=== PATIENT | male | born 1960 | race Hispanic/Latino ===

== ENCOUNTER 2019-03-23 11:28 | Emergency (ER) | payer OTHER ==
--- NOTE | 2019-03-23 13:56 | ER ---
Nurse's Notes [facility] Name: Cody Montes Age: 58 yrs Sex: Male : 1960 Arrival Date: 03/23/2019 Time: 11:35 Bed 23 Private MD: Diagnosis: Presentation: 03/23 12:14 Presenting complaint: Patient states: right elbow swelling and redness x 3-4 days. sv Transition of care: patient was not received from another setting of care. Onset of symptoms was March 2019. Risk Assessment: Do you want to hurt yourself or someone else? Patient reports no desire to harm self or others. Care prior to arrival: None. 12:14 Method Of Arrival: Ambulatory sv 12:14 Acuity: HUBER 3 sv Triage Assessment: 12:14 General: Appears in no apparent distress. uncomfortable, Behavior is calm, cooperative, sv appropriate for age. Pain: Complains of pain in right elbow and palmar aspect of right forearm. Neuro: Level of Consciousness is awake, alert, obeys commands, Gait is steady. Respiratory: Respiratory effort is even, unlabored, Respiratory pattern is regular, symmetrical. Derm: redness and swelling noted on and around right elbow. Historical: - Allergies: 12:14 No Known Allergies; sv Vital Signs: 12:15 BP 135 / 69; Pulse 63; Resp 18; Temp 97.7; Pulse Ox 97% ; Weight 90.72 kg; Height 6 ft. sv 0 in. (182.88 cm); 12:15 Body Mass Index 27.13 (90.72 kg, 182.88 cm) sv ED Course: 11:35 Patient arrived in ED. am2 12:14 Triage completed. sv 12:15 Arm band placed on Patient placed in waiting room. sv 13:53 Cristin Byrnes RN is Primary Nurse. ca1 13:53 Abhay Jacques PA is PHCP. cp 13:53 Tal Ndiaye MD is Attending Physician. cp Administered Medications: No medications were administered Outcome: 13:55 Patient left the ED. Signatures: Selene Haywood RN RN sv Abhay Jacques PA PA cp Noni Victoria RN RN Ashia Haskins am2 Cristin Byrnes RN RN ca1 Corrections: (The following items were deleted from the chart) 12:15 12:15 Pulse 63bpm; Resp 18bpm; Pulse Ox 97%; Temp 97.7F; 90.72 kg; Height 6 ft. 0 in.; sv BMI: 27.1; sv
[2019-03-23 14:00] VITALS: BP 135/69; TEMP 97.7; O2SAT 97
== END 2019-03-23 13:55 | disposition left against medical advice (07) ==
LOC: ER 11:28
DX: Z02.9 Encounter for administrative examinations, unspecified (principal)
CPT/HCPCS: 99281